=== PATIENT | male | born 1960 ===

== ENCOUNTER 2022-08-04 21:21 | Emergency (ER) | payer SELFPAY ==
[2022-08-04 21:28] VITALS: BP 150/96; PULSE 110; RESP 20; TEMP 36.9; O2SAT 98
[2022-08-04 21:52] LABS: Glucose Point of Care 310 mg/dl (65-105)
== END 2022-08-04 22:10 | disposition left against medical advice (07) ==
PROVIDERS: Emergency Provider Emergency Medicine
DX: E11.65 Type 2 diabetes mellitus with hyperglycemia (principal)
CPT/HCPCS: 82948; 99199